=== PATIENT | female | born 1975 | race Caucasian/White ===

== ENCOUNTER 2018-07-30 08:27 | Inpatient (IN) ==
[2018-07-30] MEDS ORDERED: MAALOX PLUS LIQUID PO PRN (09:15)
[2018-07-30] MEDS ORDERED: IMODIUM PO PRN (09:15)
[2018-07-30] MEDS ORDERED: DULCOLAX PR PRN (09:15)
[2018-07-30] MEDS ORDERED: ATARAX PO PRN (09:15)
[2018-07-30] MEDS ORDERED: TUBERSOL ID ONE (09:15)
[2018-07-30] MEDS ORDERED: DESYREL PO PRN (09:15)
[2018-07-30] MEDS ORDERED: SINEMET 25/100 PO PRN (09:15)
[2018-07-30] MEDS ORDERED: BENTYL PO PRN (09:15)
[2018-07-30] MEDS ORDERED: SENOKOT PO PRN (09:15)
[2018-07-30] MEDS ORDERED: ZOFRAN ODT PO PRN (09:15)
[2018-07-30] MEDS ORDERED: PHENOBARBITAL IV PRN (09:15)
[2018-07-30] MEDS ORDERED: ZOFRAN IV PRN (09:15)
[2018-07-30] MEDS ORDERED: LIBRIUM PO PRN (09:15)
[2018-07-30] MEDS ORDERED: D5W 1,000 ML IV PRN (09:15)
[2018-07-30 11:06] LABS: HEMATOCRIT 38.8 % (37.0-47.0); HEMOGLOBIN 12.7 g/dL (12.0-16.0); MCH 31.7 PG (27-31); MCHC 32.7 g/dL (33-37); MCV 96.8 FL (81-99); MPV 10.1 FL (7.4-10.4); RBC 4.01 XMIL (4.2-5.4); RDW 13.1 % (11.5-14.5); WBC 7.98 X1000 (4.8-10.8)
[2018-07-30 11:08] LABS: INR 0.89; PROTIME 12.5 Seconds (11.0-16.0)
[2018-07-30 11:09] LABS: AMYLASE 48 U/L (20-200); LIPASE 23 U/L (13-60)
[2018-07-30 11:13] LABS: AGAP 10; ALBUMIN 4.2 g/dL (3.5-5.0); ALKALINE PHOSPHATASE 56 U/L (32-104); BUN 15 mg/dL (8-22); CALCIUM 8.9 mg/dL (8.8-10.2); CHLORIDE 106 mmol/L (98-107); COSMO 285; CREATININE 0.4 mg/dL (0.5-0.9); ESTIMATED GFR > 60; GLUCOSE 89 mg/dL (70-104); GOT 17 U/L (10-30); GPT 11 U/L (10-36); POTASSIUM 4.7 mmol/L (3.5-5.1); SODIUM 143 mmol/L (136-145); TCO2 27 mmol/L (25-35); TOTAL PROTEIN 6.8 g/dL (6.3-8.3)
[2018-07-30 11:27] LABS: URINE SOURCE CLEAN CATCH
[2018-07-30 11:37] LABS: BILIRUBIN URINE NEGATIVE (NEGATIVE); BLOOD URINE NEGATIVE (NEGATIVE); CLARITY CLEAR (CLEAR); COLOR YELLOW; GLUCOSE URINE NEGATIVE (NEGATIVE); KETONE URINE NEGATIVE (NEGATIVE); LEUKOCYTES URINE NEGATIVE (NEGATIVE); NITRITE URINE NEGATIVE (NEGATIVE); PROTEIN URINE NEGATIVE (NEGATIVE); SP GRAVITY URINE 1.005; UROBILINOGEN URINE NORMAL
[2018-07-30 11:40] LABS: UR AMPHETAMINES QUAL NONE DETECTED (NONE DETECT); UR BARBITUATES QUAL NONE DETECTED (NONE DETECT); UR BENZODIAZEPIN QUAL PRESUMPTIVE POSITIVE (NONE DETECT); UR CANNABINOIDS QUAL NONE DETECTED (NONE DETECT); UR COCAINE QUAL NONE DETECTED (NONE DETECT); UR METHADONE QUAL NONE DETECTED (NONE DETECT); UR METHAMPHETAMINE QUAL NONE DETECTED (NONE DETECT); UR OPIATES QUAL PRESUMPTIVE POSITIVE (NONE DETECT); UR OXYCODONE QUAL NONE DETECTED (NONE DETECT); UR PCP QUAL NONE DETECTED (NONE DETECT); UR PROPOXYPHENE QUAL NONE DETECTED (NONE DETECT); UR TCA QUAL NONE DETECTED (NONE DETECT)
[2018-07-30] MEDS: NICODERM PATCH TD PRN (12:37)
[2018-07-30] MEDS: TYLENOL PO PRN ×2 (12:37→21:12)
[2018-07-30] MEDS: ROBAXIN PO PRN ×2 (12:37→21:12)
[2018-07-30] MEDS: SUBOXONE 2 MG/0.5 MG FILM SL SCH (14:40)
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
[2018-07-30] MEDS: SEROQUEL PO PRN (21:12)
[2018-07-31] MEDS: SUBOXONE 2 MG/0.5 MG FILM SL SCH ×2 (01:20→14:43)
[2018-07-31] MEDS: PROTONIX PO SCH ×2 (06:08→08:35)
[2018-07-31] MEDS: FOLIC ACID PO SCH (08:22)
[2018-07-31] MEDS: THERA M PLUS PO SCH (08:22)
[2018-07-31] MEDS: VITAMIN B-1 PO SCH (08:22)
[2018-07-31] MEDS: MOTRIN PO PRN ×2 (08:35→19:20)
[2018-07-31] MEDS: NICODERM PATCH TD PRN (08:35)
[2018-07-31] MEDS: ROBAXIN PO PRN (19:20)
[2018-07-31] MEDS: SEROQUEL PO PRN (20:53)
[2018-08-01] MEDS: SUBOXONE 2 MG/0.5 MG FILM SL SCH ×2 (03:25→13:47)
[2018-08-01] MEDS: PROTONIX PO SCH (06:04)
[2018-08-01 07:43] VITALS: BP 103/66
[2018-08-01] MEDS: FOLIC ACID PO SCH (10:31)
[2018-08-01] MEDS: THERA M PLUS PO SCH (10:31)
[2018-08-01] MEDS: VITAMIN B-1 PO SCH (10:31)
[2018-08-01] MEDS: MOTRIN PO PRN (10:42)
--- NOTE | 2018-08-01 18:49 | PROGRESS NOTE ---
DATE: 08/01/2018 SUBJECTIVE: Patient notes that she is feeling a lot better. The 2 mg however made her feel worse. PHYSICAL: Vital signs reviewed. She is awake, alert, she is in no distress. Blood pressure stable, respiratory 20.HEENT: Normocephalic. Neck: Supple. CV: Regular rate. Chest: Clear. Abdomen: Soft. Extremities: Moves all extremities. ASSESSMENT: 1. Nausea, vomiting. 2. Abdominal pain. 3. Myalgias. 4. Paresthesias. 5. Paroxysmal sweating. 6. Opiate abuse, withdrawal and stabilization. PLAN: Will continue patient the hospital, continue Suboxone, further orders as needed. We will continue counseling. cc: Edison Dougherty MD
--- NOTE | 2018-08-01 18:54 | PROGRESS NOTE ---
DATE: 08/01/2018 SUBJECTIVE: Patient has no complaints. States that she is feeling a lot better today than she was yesterday. PHYSICAL EXAMINATION: Vital Signs: Reviewed and stable. Physical examination is unchanged. ASSESSMENT: 1. Nausea, vomiting, and abdominal pain. 2. Myalgias. 3. Paroxysmal sweating. 4. Opiate abuse withdrawal and stabilization. PLAN: The patient currently is improved on the 4 mg of Suboxone. We will continue this dose and follow. cc: Edison Dougherty MD
[2018-08-01] MEDS ORDERED: SUBOXONE 2 MG/0.5 MG SL SCH (21:00)
== END 2018-08-01 18:30 | disposition home or self-care (01) | DRG 897 ==
LOC: P.DIRADM 08:27 → P.MEDSURG 08:59
PROVIDERS: ADMIT Family Medicine; ATTEND Family Medicine
CPT/HCPCS: 80053; 80104; 80301; 80305; 80307; 80320; 82055; 82150; 83690; 84703; 85027; 85610; 86580; A9270; G0431; G0434; G0477; G0480; G6040